=== PATIENT | male | born 1960 | race Caucasian/White ===

== ENCOUNTER 2024-02-20 14:01 | Emergency (ER) | payer BC, SELFPAY ==
[2024-02-20 14:04] VITALS: BP 113/55
--- NOTE | 2024-02-20 14:05 | ED.GENADULT ---
HPI - General Adult General Chief complaint: Overdose Stated complaint: OVERDOSE, 8MG NARCAN GIVEN Time Seen by Provider: 02/20/24 14:04 Source: patient and EMS Mode of arrival: EMS Limitations: no limitations History of Present Illness ED Provider: Stephanie Gomez PA-C HPI narrative: Patient is a 63 year old assigned male at with no reported medical history presenting to the emergency department today after a possible overdose. Patient states that he does not remember what happened but he woke up in his truck with EMS there. Patient denies any drug or alcohol use. Patient states that he does not want to be evaluated and he wants to leave. EMS states that they gave the patient 8mg total of Narcan and he woke up, immediately alert and oriented. Patient denies any dizziness, lightheadedness, abdominal pain, nausea, vomiting, fever, chills, blurry vision, double vision, loss of vision, chest pain, difficulty breathing, shortness of breath, back pain, night sweats, pain with urination, increased urinary frequency, increased urinary urgency, blood in his urine or stool, syncope or a near syncopal episode, recent trauma or falls, bowel incontinence, bladder incontinence, or any other complaints at this time. Relieving factors: none Exacerbating factors: none Associated symptoms: denies other symptoms Treatments prior to arrival: other (8mg of Narcan) Related Data Allergies Allergy/AdvReac Type Severity Reaction Status Date / Time No Known Allergies Allergy Verified 02/20/24 14:13 Review of Systems Constitutional: Constitutional: Reports no additional constitutional complaints, Denies chills, Denies fever(s) and Denies night sweats Eyes: Eyes: Reports no additional eye complaints, Denies blurry vision, Denies change in vision, Denies diplopia, Denies eye discharge, Denies loss of vision and Denies eye pain ENT: Denies dizziness Cardiovascular: Cardiovascular: Reports no additional cardiovascular complaints, Denies chest pain, Denies lightheadedness, Denies Loss of Consciousness and Denies dyspnea Respiratory: Respiratory: Reports no additional respiratory complaints and Denies dyspnea Gastrointestinal: Gastrointestinal: Reports no additional gastrointestinal complaints, Denies abdominal pain, Denies melena, Denies hematochezia, Denies change in bowel habits and Denies change in stool character Genitourinary: Genitourinary: Reports no additional male genitourinary complaints, Denies hematuria, Denies oliguria, Denies difficulty urinating, Denies dysuria, Denies urinary frequency, Denies urinary hesitancy, Denies urinary incontinence and Denies urinary urgency Musculoskeletal: Musculoskeletal: Reports no additional musculoskeletal complaints, Denies numbness and Denies tingling Neurologic: Denies dizziness, Denies loss of vision, Denies numbness and Denies tingling Psychiatric: Psychiatric: Reports no additional psychiatric complaints Endocrine: Endocrine: Reports no additional endocrine complaints Hematologic/Lymphatic: Hematologic/Lymphatic: Reports no additional hematologic/lymphatic complaints Allergic/Immunologic: Allergic/Immunologic: Reports no additional allergic/immunologic complaints [facility] Past Medical History Attestation statement: The following information was validated with the patient. Source: old records reviewed and nursing notes reviewed Social History Social History Advance Directives: No Advance Directives Information Provided: Yes Do you have a plan to hurt others: No Plan Physical Exam ED Vital Signs: Vital Signs - 24 hr 02/20/24 14:11 02/20/24 14:24 Temperature 97.1 F 97.1 F Pulse Rate 125 H 125 H Respiratory Rate 20 20 Blood Pressure 129/78 129/78 Pulse Oximetry 94 94 Oxygen Delivery Method Room Air Room Air BMI result Body Mass Index 32.3 Medications Administered Discontinued Medications Generic Name Dose Route Start Last Admin Trade Name Freq PRN Reason Stop Dose Admin Naloxone HCl 8 mg 02/20/24 14:14 02/20/24 14:26 Naloxone Hcl Nasal Take Home 4 Mg [place] NOSTRILALT 02/20/24 14:15 Not Given ONCE ONE Medical Decision Making Medical Decision Making MDM Narrative: Patient is a 63 year old assigned male at with no reported medical history presenting to the emergency department today after a possible overdose. Patient's physical exam was unremarkable. I explained my physical exam findings to the patient. I answered all questions asked by the patient. Patient of sound mind and decision making capability. Patient alert and oriented x3. Patient adamantly refused any additional testing such as a CBC, CMP, urine drug screen, chest x-ray, and head CT. I explained in great detail the risk of , disability, and decreased quality of life if the patient were to leave the hospital against medical advice at this time. Patient stated that he understood all risks associated with signing out against medical advice and he would like to anyway. Patient did accept take home Narcan and a resource booklet. Patient signed out against medical advice. Differential Diagnosis Differential Diagnoses: The differential diagnosis associated with the presentation includes Overdose Sycope Seizure Admission/Observation Consideration of admission/observation: Escalation of care including admission/observation considered I would have considered admitting this patient had he allowed a work up to be performed and would agree to stay in the hospital. Independent Historian Clinical information obtained from an independent historian. History obtained from or confirmed by: EMS (EMS provided additional history and confirmed the history provided by the patient.) Discharge Plan Discharge Clinical Impression: Overdose Patient Disposition: Left Against Medical Advice Instructions: Adult Overdose (ED) Stand Alone Forms: Against Medical Advice Interventions: ED Discharge Assessment Last Done: 02/20/24 14:24 Discharge Date/Time: 02/20/24 14:26 Print Language: Camb[place]ian
[2024-02-20 14:11] VITALS: BP 129/78; PULSE 125; RESP 20; TEMP 36.2; O2SAT 94; BMI 32.3
[2024-02-20 14:24] VITALS: BP 129/78; PULSE 125; RESP 20; TEMP 36.2; O2SAT 94
--- NOTE | 2024-02-20 14:24 | PC.NURSE ---
Patient provided with 2 nasal take home narcans, adamantly denies drug use , IV line removed , signed ama paperwork
== END 2024-02-20 14:26 | disposition left against medical advice (07) ==
PROVIDERS: Emergency Provider Emergency Medicine
DX: T50.901A Poisoning by unspecified drugs, medicaments and biological substances, accidental (unintentional), initial encounter (principal); Y92.812 Truck as the place of occurrence of the external cause
CPT/HCPCS: 99282; 99283